=== PATIENT | female | born 1930 | race Caucasian/White ===

== ENCOUNTER 2018-06-14 06:53 | Day surgery (SDC) | payer MEDICARE, OTHER ==
[2018-06-14] MEDS ORDERED: Lactated Ringers 1,000 ML IV SCH (07:00)
[2018-06-14] MEDS ORDERED: Sodium Chloride 0.9% 10 ML Syringe FLUSH PRN (07:00)
[2018-06-14] MEDS ORDERED: Lidocaine 1%/Sod Bicarbonate in NS 8.4% 1 ML Syringe IDERM PRN (07:00)
[2018-06-14] MEDS ORDERED: Lidocaine 1% 4 ML ONE (07:26)
[2018-06-14] MEDS ORDERED: fentaNYL 100 MCG/2 ML SDV ONE (07:27)
[2018-06-14] MEDS ORDERED: Propofol 200 MG/20 ML SDV ONE ×2 (07:27→08:42)
--- NOTE | 2018-06-14 07:36 | PCM.PREANE ---
Preanesthetic Assessment - Procedure Proposed Procedure: colonoscopy - Anesthesia/Transfusion/Family Hx Anesthesia History: Prior Anesthesia Without Reaction Transfusion History: No Prior Transfusion(s) - Review of Systems General: Chills (always cold) Pulmonary: No Symptoms Cardiovascular: No Symptoms Gastrointestinal: Constipation Neurological: No Symptoms Other: Reports: Easy Bruising, Thyroid Problems - Physical Assessment NPO Status Date: 06/13/18 NPO Status Time: 02:00 O2 Sat by Pulse Oximetry: 97 Respiratory Rate: 16 Vital Signs: Last Vital Signs Temp 98.2 F 06/14/18 07:00 Pulse 72 06/14/18 07:00 Resp 16 06/14/18 07:00 BP 124/81 06/14/18 07:00 Pulse Ox 97 06/14/18 07:00 Height: 5 ft 5 in Weight: 64.864 kg ASA Class: 3 Mental Status: Alert & Oriented x3 Airway Class: Mallampati = 1 Dentition: Reports: Normal Dentition, Partial (top) Thyro-Mental Finger Breadths: 3 Mouth Opening Finger Breadths: 3 ROM/Head Extension: Full Lungs: Clear to Auscultation, Normal Respiratory Effort Cardiovascular: Regular Rate, Regular Rhythm - Allergies Allergies/Adverse Reactions: Allergies Allergy/AdvReac Type Severity Reaction Status Date / Time Sulfa (Sulfonamide Allergy Rash Verified 06/13/18 13:22 Antibiotics) levofloxacin [From Levaquin] AdvReac Nausea and Verified 06/13/18 13:22 Vomiting nitrofurantoin AdvReac Nausea and Verified 06/13/18 13:22 [From Macrobid] Vomiting nitrofurantoin AdvReac Nausea and Verified 06/13/18 13:22 macrocrystalline Vomiting [From Macrobid] phenazopyridine HCl AdvReac Nausea and Verified 06/13/18 13:22 [From Pyridium] Vomiting procaine [Procaine] AdvReac Nausea and Verified 06/13/18 13:22 Vomiting procaine HCl [From Novocain] AdvReac Nausea and Verified 06/13/18 13:22 Vomiting - Blood Blood Available: No - Acknowledgements Anesthesia Type Planned: MAC Pt an Appropriate Candidate for the Planned Anesthesia: Yes Alternatives and Risks of Anesthesia Discussed w Pt/Guardian: Yes Pt/Guardian Understands and Agrees with Anesthesia Plan: Yes PreAnesthesia Questionnaire HEENT History: Reports: Impaired Vision, Other (See Below) Other HEENT History: bilateral cataract, hearing aids, glasses, partial Cardiovascular History: Reports: Afib, CAD, High Cholesterol, Hypertension, Other (See Below) Other Cardiovascular History: mitral valve regurgitation, aortic valve insufficiency, edema Respiratory History: Reports: Other (See Below) Other Respiratory History: pulmonary nodules, brochiectasis, bronchoscopy Gastrointestinal History: Reports: None Genitourinary History: Reports: UTI, Recurrent [employer] History: Reports: Fibroids, Musculoskeletal History: Reports: Osteoporosis Other Musculoskeletal History: wrist fracture Neurological History: Reports: None Psychiatric History: Reports: None Endocrine/Metabolic History: Reports: Hypothyroidism Hematologic History: Reports: None Immunologic History: Reports: None Oncologic (Cancer) History: Reports: None Dermatologic History: Reports: Scleroderma - Past Surgical History Head Surgeries/Procedures: Reports: None HEENT Surgical History: Reports: Cataract Surgery Cardiovascular Surgical History: Reports: None Respiratory Surgical History: Reports: None GI Surgical History: Reports: Appendectomy, Colonoscopy Female Surgical History: Reports: Hysterectomy, Salpingo-Oophorectomy, Other (See Below) Other Female Surgeries/Procedures: Bladder surgery Endocrine Surgical History: Reports: None Neurological Surgical History: Reports: None Musculoskeletal Surgical History: Reports: ORIF, Other (See Below) Other Musculoskeletal Surgeries/Procedures:: Bunionectomy, Hammertoe Oncologic Surgical History: Reports: None Dermatological Surgical History: Reports: None - SUBSTANCE USE Smoking Status *Q: Former Smoker Tobacco Use Within Last Twelve Months: No Second Hand Smoke Exposure: No Days Per Week of Alcohol Use: 1 (seldom) Recreational Drug Use History: No - HOME MEDS Home Medications: Home Meds Cholecalciferol (Vitamin D3) [Vitamin D3] 400 unit PO DAILY 12/24/13 [History] Diltiazem HCl [Diltiazem 24Hr Cd] 180 mg PO DAILY 12/24/13 [History] [place]-3 Fatty Acids/Fish Oil [Fish Oil 1,000 mg Softgel] 1,000 mg PO DAILY 12/24 [History] Triamterene/Hydrochlorothiazid [Triamterene-HCTZ 37.5-25 MG] 1 cap PO DAILY 10/30 [History] Vitamin E 1,000 unit PO Q48H 12/24/13 [History] Cyanocobalamin (Vitamin B-12) [B-12] 1,000 mcg PO Q48H 10/02/15 [History] Ubidecarenone [Coenzyme Q10] 10 mg PO DAILY 10/02/15 [History] Cyclobenzaprine [Flexeril] 10 mg PO TID PRN 06/13/18 [History] Estradiol [Estrace 0.01% Vaginal Crm] 1 dose VAG ASDIRECTED 06/13/18 [History] Levothyroxine [Synthroid] 88 mcg PO DAILY 06/13/18 [History] Meloxicam [Mobic] 7.5 mg PO DAILY 06/13/18 [History] Multivitamin [Daily Multiple Vitamin] 1 tab PO DAILY 06/13/18 [History] Warfarin [Coumadin] 2.5 mg PO SUTUTH 06/13/18 [History] Warfarin [Coumadin] 5 mg PO SUMOWEFR 06/13/18 [History] - CURRENT (IN HOUSE) MEDS Current Meds: Current Medications Lactated Ringer's (Ringers, Lactated) 1,000 mls @ 125 mls/hr IV ASDIRECTED ANDREA Stop: 06/14/18 23:00 Lidocaine/Sodium Bicarbonate (Buffered Lidocaine 1% In Ns 8.4%) 0.25 ml IDERM ONETIME PRN PRN Reason: Prior to IV Start Stop: 06/14/18 18:00 Sodium Chloride (Saline Flush) 10 ml FLUSH ASDIRECTED PRN PRN Reason: Keep Vein Open Stop: 06/14/18 18:00 Discontinued Medications Fentanyl (Sublimaze) Confirm Administered Dose 100 mcg .ROUTE .STK-MED ONE Stop: 06/14/18 07:28 Lidocaine HCl (Xylocaine-Mpf 1%) Confirm Administered Dose 4 mls @ as directed .ROUTE .STK-MED ONE Stop: 06/14/18 07:27 Propofol (Diprivan 20 Ml) Confirm Administered Dose 200 mg .ROUTE .STK-MED ONE Stop: 06/14/18 07:28
--- NOTE | 2018-06-14 09:03 | PCM48HPAN ---
Post Anesthesia Note - EVALUATION WITHIN 48HRS OF ANESTHETIC Vital Signs in Normal Range: Yes Patient Participated in Evaluation: Yes Respiratory Function Stable: Yes Airway Patent: Yes Cardiovascular Function Stable: Yes Hydration Status Stable: Yes Pain Control Satisfactory: Yes Nausea and Vomiting Control Satisfactory: Yes Mental Status Recovered: Yes Pulse Rate: 57 SaO2: 98 Resp Rate: 12 Temperature: 97.1 F Blood Pressure: 116/59
--- NOTE | 2018-06-14 09:08 | PCM.OPNOTE ---
- General Post-Op/Procedure Note Date of Surgery/Procedure: 06/14/18 Operative Procedure(s): incomplete colonoscopy Findings: very tortuous colon with friable mucosa, unable to pass the transverse colon Pre Op Diagnosis: rectal bleeding and abdominal pain Post-Op Diagnosis: same Anesthesia Technique: MAC Primary Surgeon: Radha Esteves Anesthesia Provider: Thor Castellanos Pathology: Rectal polyp x 2 Fluid Replacement, Intraop: 600 Output, Urine Amount: 0 EBL in mLs: 0 Complications: none apparent Condition: Good
--- NOTE | 2018-06-14 09:09 | PCM.PRNOTE ---
- Free Text/Narrative Note: Operative Report Date of Surgery/Procedure: June 14, 2018 Operative Procedure: Incomplete Colonoscopy Pre Op Diagnosis: Rectal bleeding and abdominal pain Post-Op Diagnosis: . Same Surgeon: Radha Esteves M.D. Anesthesia Technique: MAC Anesthesia Provider: Thor Castellanos CRNA IV Fluid Replacement, Intraop: 600cc Output, Urine Amount: 0cc EBL : 0cc Findings: Tortuous colon with friable mucosa; multiple rectal polyps that appeared hyperplastic Specimens: Rectal polyp 2 Indication: The patient is an 87 year-old lady who presented to the outpatient clinic requesting evaluation for a recent episode of rectal bleeding. She had a hard stool that resulted in a limited course of rectal bleeding. The patient has a history of incomplete colonoscopy. She reports that she had tortuosity of the colon which prevented the previous endoscopist from completing the procedure and colonoscopy was attempted approximately 11 years ago. We discussed the procedure of a screening colonoscopy including the polypectomy and biopsy. Risks of bleeding and perforation were discussed, as well as the risk of increased complications due to tissue friability from her age; the patient understood and wished to proceed. Written and consent was obtained Description of the procedure: The patient was brought to the endoscopy suite and placed in the left lateral decubitus position. Appropriate monitors were applied. The patient was given MAC anesthesia. An anorectal examination was performed, revealing some anal skin tags. The scope was placed into the rectum and advanced to the transverse colon with moderate difficulty. The patient had tortuosity with some blind turns. Abdominal pressure and supine positioning did not assist in opening the colon. Any attempt to slide the scope along the colonic wall resulted in small tears and bleeding. Given the patient's age and comorbidities, the decision was made to not proceed with colonoscopy. The colonoscope was then withdrawn, paying careful attention to the mucosa. The patient had excellent bowel prep, allowing for visualization of greater than 95 % of the mucosa. Multiple small polyps consistent with hyperplastic polyps were seen in the rectum. 2 polyps were excised and sent to pathology. Polypectomy was done using jumbo cold biopsy forceps was noted. In the rectum, the scope was retroflexed and no rationale abnormalities were noted, except for some hemorrhoidal tissue. The scope was placed back in the lumen and the excess air was aspirated. The patient tolerated the procedure well. Complications: none apparent Condition: Good, transported to PACU in stable condition Radha Esteves MD General Surgery
[2018-06-14 09:30] VITALS: BP 127/70
== END 2018-06-14 09:40 | disposition home or self-care (01) ==
LOC: JD.SDS 06:53
PROVIDERS: ATTEND Surgery
DX: K62.5 Hemorrhage of anus and rectum (principal); R10.30 Lower abdominal pain, unspecified; K62.1 Rectal polyp; K64.4 Residual hemorrhoidal skin tags; K63.89 Other specified diseases of intestine; I10 Essential (primary) hypertension; I48.0 Paroxysmal atrial fibrillation; I34.0 Nonrheumatic mitral (valve) insufficiency; I36.1 Nonrheumatic tricuspid (valve) insufficiency; I35.1 Nonrheumatic aortic (valve) insufficiency; I25.10 Atherosclerotic heart disease of native coronary artery without angina pectoris; E03.9 Hypothyroidism, unspecified; E78.5 Hyperlipidemia, unspecified; E78.00 Pure hypercholesterolemia, unspecified; Z88.2 Allergy status to sulfonamides; Z88.1 Allergy status to other antibiotic agents; Z88.8 Allergy status to other drugs, medicaments and biological substances; Z87.891 Personal history of nicotine dependence; Z80.0 Family history of malignant neoplasm of digestive organs; Z79.1 Long term (current) use of non-steroidal anti-inflammatories (NSAID); Z79.01 Long term (current) use of anticoagulants; Z79.899 Other long term (current) drug therapy
CPT/HCPCS: 36415; 45380; 85610; J2001; J2704; J3010; J7120; 00811